=== PATIENT | female | born 1960 | race American Indian/Alaskan Native ===

== ENCOUNTER 2019-03-25 07:39 | Day surgery (SDC) | payer OTHER ==
[~2019-03-25] VITALS: Ht 322.6 cm; Wt 87.1 kg
[~2019-03-25 07:39] MED LIST: ACYCLOVIR200 MG PO; IBU600 MG PO; LISINOPRIL10 MG PO; TERBINAFINE HC250 MG PO; VITAMIN D400 UNIT PO
--- NOTE | 2019-03-25 09:20 | NUR ---
03/25/19 0920 Shannen Triana 0951 PATIENT ARRIVES TO PACU SLEEPING, WAKES UP WITH VERBAL STIMULI, THEN BACK TO SLEEP. RESP EVEN AND UNLABORED, OXYGEN OFF.
--- NOTE | 2019-03-25 10:49 | OR ---
[facility] [address] [place], [place] [address] Signed DATE OF OPERATION: 03/25/2019 SURGEON: Karsten Ewing MD PREOPERATIVE DIAGNOSIS: Screening. POSTOPERATIVE DIAGNOSES: 1. 4 mm polyp in cecum/lateral edge of the ileocecal valve. 2. 4 mm polyp in proximal right colon. PROCEDURE: Colonoscopy with hot biopsy. ESTIMATED BLOOD LOSS: None. INDICATIONS: Harper is a 58-year-old lady who underwent a negative colonoscopy back at age 48. She returns now for followup screening colonoscopy. She has no lower GI complaints. There is no family history of colon cancer or polyps. In the office, I gave her a pamphlet on colonoscopy. We looked at that together along with the risks including, but not limited to gas bloating, crampy abdominal pain, bleeding, perforation requiring surgery, and missed diagnosis. We also discussed the need for IV conscious sedation. She had expressed understanding and wished to proceed. PROCEDURE NOTE: Harper was taken into our endoscopy suite and placed in the left lateral decubitus position. She was given a total of 9 mg of Versed and 175 mcg of fentanyl. A digital rectal exam was performed and this was unremarkable. The adult colonoscope was introduced and advanced under direct visualization of camera. She has a moderately long redundant transverse and left colon. It took a few minutes to get the camera through and around the hepatic flexure. Even with abdominal compression and additional sedation, we had to rotate her into the supine position. We then were able to pass the scope directly into the cecum itself. Her prep was good. The scope was slowly withdrawn. We could see the appendiceal orifice and ileocecal valve. There was a small polyp just to the lateral edge of the ileocecal valve and we removed easily with hot biopsy forceps. An additional 4 mm polyp was in the proximal right colon. It was also removed with the help of hot biopsy forceps. The scope was then slowly withdrawn. The rest of the colon was unremarkable. The rectum was unremarkable. Upon retroflexion of Electronically Signed By: KARSTEN EWING MD 03/25/19 1049 PATIENT NAME: HARPER DICKEY OPERATIVE REPORT DATE OF : 56 REPORT #: [id number] PHYSICIAN: KARSTEN EWING MD PCP: [facility] REPORT IS CONFIDENTIAL AND NOT TO BE RELEASED WITHOUT AUTHORIZATION [address] [address] Signed scope, there was no additional pathology noted above the anal canal. After this, the gas was suctioned out and colonoscope removed. Harper tolerated the procedure quite well. RECOMMENDATIONS: I will see Harper back in my office in 7 to 14 days to review her results. MD MARA Weir/OPALL /[id number] cc: ELISA Guido MD Copies: KARSTEN EWING MD ~ Electronically Signed By: KARSTEN EWING MD 03/25/19 1049 PATIENT NAME: SHITAL DICKEYLeilani MONK OPERATIVE REPORT DATE OF : 56 REPORT #: [id number] PHYSICIAN: KARSTEN EWING MD PCP: [facility] REPORT IS CONFIDENTIAL AND NOT TO BE RELEASED WITHOUT AUTHORIZATION
--- NOTE | 2019-03-25 10:58 | NUR ---
MET WITH PT JUSTS BEFORE STAFF CAME IN TO PREP HER. SHE HS HAD PREVIOUS SCOPE, SHE DID MENTIONED THAT SHE HAD SOME DIETARY QUESTIONS. I REFERRED HER TO CHECK WITH HER RN. GAVE BLESSING, WILL FOLLOW NEEDED
--- NOTE | 2019-03-26 11:50 | PATH ---
[facility] [address] [place], [place] [address] Signed SPECIMEN(S): A CECAL POLYP SPECIMEN(S): B PROXIMAL RIGHT COLON POLYP SPECIMEN SOURCE: A. CECAL POLYP B. PROXIMAL RIGHT COLON POLYP CLINICAL HISTORY: Screening, polyps. MICROSCOPIC DESCRIPTION: Histologic sections of all submitted blocks are examined by light microscopy. These findings, together with the gross examination, support the pathologic diagnosis. FINAL PATHOLOGIC DIAGNOSIS: A. Colon, cecum, polyp, polypectomy: - Fragments of tubular adenoma. - Negative for high-grade dysplasia or malignancy. B. Colon, proximal right, polyp, polypectomy: - Tubular adenoma. - Negative for high-grade dysplasia or malignancy. NAL:cml:C2NR GROSS DESCRIPTION: Two specimens are received in two containers, labeled "DH." A. The specimen, labeled "DH, cecal polyp," is received in formalin and consists of four, 0.1-0.2 cm law-brown tissue fragments. The specimen is entirely submitted in cassette (A1). B. The specimen, labeled "DH, proximal right colon polyp," is received in formalin and consists of a single 0.3 cm law tissue fragment. The specimen is entirely submitted in cassette (B1). AM (under the direct supervision of a pathologist) The Gross Description was prepared using a voice recognition system. The report was reviewed for accuracy; however, sound-alike word errors, addition and/or deletions may occur. If there is any question about this report, please contact Client Services. PERFORMING LABORATORY: The technical component was performed by [employer], [address] [place] [id number] (Retreader: Brooke Apple MD; CLIA# [id number]). Professional interpretation was performed by PATIENT NAME: HOANG DICKEY PATHOLOGY DATE OF : 56 REPORT #: [id number] PHYSICIAN: [facility] PCP: [facility] REPORT IS CONFIDENTIAL AND NOT TO BE RELEASED WITHOUT AUTHORIZATION [facility] [address] [place], [place] [address] Signed [facility], [facility], [address] [facility] [address], [place] [address] (Retreader: Juan Talley MD; CLIA# [id number]). Diagnostician: Ria Moreno MD Pathologist Electronically Signed 03/26/2019 Copies: ~ PATIENT NAME: HOANG DICKEY PATHOLOGY DATE OF : 56 REPORT #: [id number] PHYSICIAN: [facility] PCP: [facility] REPORT IS CONFIDENTIAL AND NOT TO BE RELEASED WITHOUT AUTHORIZATION
== END 2019-03-25 09:55 | disposition home or self-care (01) ==
LOC: DS 07:39 → OPS 07:39 → DS 09:00 → OPS 09:55
PROVIDERS: Colon & Rectal Surgery
PROC: 0DBF8ZZ Excision of Right Large Intestine, Via Natural or Artificial Opening Endoscopic (ICD-10-PCS; 2019-03-25)
PROC: 0DBH8ZZ Excision of Cecum, Via Natural or Artificial Opening Endoscopic (ICD-10-PCS; principal; 2019-03-25 09:00)
DX: Z12.11 Encounter for screening for malignant neoplasm of colon (principal); D12.0 Benign neoplasm of cecum; D12.2 Benign neoplasm of ascending colon; I10 Essential (primary) hypertension; E55.9 Vitamin D deficiency, unspecified; Z79.899 Other long term (current) drug therapy; Z88.2 Allergy status to sulfonamides
CPT/HCPCS: 99153; G0500; J2250; J3010